=== PATIENT | female | born 1965 | race Caucasian/White ===

== ENCOUNTER 2016-04-29 07:28 | Day surgery (SDC) | payer OTHER ==
--- NOTE | ~2016-04-29 | EGD ---
EGD REPORT [place] [address] [id number] NAME: CHELLE BOOGIE : 63 STATUS : REG [facility]#: [id number] AGE: 50 ADM/REG DATE : 04/29/16 MR#: [id number] REPORT SERV DATE: 04/29/16 DICTATED BY: JESS RANGEL DATE: 04/29/16 REPORT STATUS : Draft TRANSCRIBED BY: [facility] DATE: 04/29/16 Pulmonology Patient Name: Chelle Boogie Procedure Date: 04/29/2016 9:46 AM Date of : 1965 Attending MD: DARIEL RANGEL MD Procedure Date No Time: 04/29/2016 Procedure: EBUS/ERICK BRONCH Indications: Left upper lobe nodule Providers: DARIEL RANGEL MD Referring MD: NICOLAS HARRIS MD Medicines: Lidocaine 2% 20 mL Complications: No immediate complications Procedure: Pre-Anesthesia Assessment: - A History and Physical has been performed. Patient meds and allergies have been reviewed. The risks and benefits of the procedure and the sedation options and risks were discussed with the patient. All questions were answered and informed consent was obtained. Patient identification and proposed procedure were verified prior to the procedure by the physician in the pre-procedure area in the procedure room. Mental Status Examination: alert and oriented. Airway Examination: normal oropharyngeal airway. Respiratory Examination: clear to auscultation. CV Examination: normal and RRR, no murmurs, no S3 or S4. ASA Grade Assessment: III - A patient with severe systemic disease. After reviewing the risks and benefits, the patient was deemed in satisfactory condition to undergo the procedure. The anesthesia plan was to use general anesthesia. Immediately prior to administration of medications, the patient was re-assessed for adequacy to receive sedatives. The heart rate, respiratory rate, oxygen saturations, blood pressure, adequacy of pulmonary ventilation, and response to care were monitored throughout the procedure. The physical status of the patient was re-assessed after the procedure. After obtaining informed consent, the BF [id number] was introduced through the mouth, via the endotracheal tube (the patient was intubated for the procedure) and advanced to the tracheobronchial tree. The procedure was accomplished without difficulty. The patient tolerated the procedure well. Findings: The endotracheal tube is in good position. The visualized portion of the trachea is of normal caliber. The apple is sharp. The tracheobronchial EGD REPORT [address] [address] NAME: CHELLE BOOGIE : 63 STATUS : REG [facility] PAT#: [id number] AGE: 50 ADM/REG DATE : 04/29/16 MR#: [id number] REPORT SERV DATE: 04/29/16 DICTATED BY: JESS RANGEL DATE: 04/29/16 REPORT STATUS : Draft TRANSCRIBED BY: [employer] DATE: 04/29/16 tree was examined to at least the first subsegmental level. Bronchial mucosa and anatomy are normal; there are no endobronchial lesions, and no secretions. EBUS TBNA of lymph node level 11R x 6 passes for cytology EBUS TBNA of lymph node level 7 x 4 passes for cytology EBUS TBNA of lymph node level 11L x 4 passes for cytology Using SuperDimension Edge catheter 180, peripheral probe EBUS 17s, and fluoroscopy, I performed the following biopsies: ZACHARY lung nodule transbronchial needle aspirates x 6 passes for cytology ZACHARY lung nodule transbronchial brush biopsy x 2 pass for cytology ZACHARY lung nodule transbronchial forcep biopsies x 9 passes for histopathology JENNIFER endobronchial brush biopsies were performed for the Percepta Trial Bronchoalveolar lavage was performed in the left upper lobe of the lung and sent for cell count, cytology, bacterial culture, viral smears \\T\\ culture, and fungal and AFB analysis. 180 mL of fluid were instilled. 30 mL were returned. The return was cellular. Impression: Rapid On-Site Evaluation (KEZIA): Preliminary cytology is "Hemorrhagic samples, await final pathology, no tumor seen" (final results are pending). Lesion appeared highly vascular on ultrasoud. Patient enrolled in Percepta clinical trial and Oncocyte trials Recommendation: - Await test results. - Chest X-ray post-procedure. - Follow up in clinic in 2 weeks. Attending Participation: I personally performed the entire procedure. DARIEL RANGEL MD 04/29/2016 11:45 AM This report has been signed electronically. Number of Addenda: 0 Note Initiated On: 04/29/2016 9:46 AM [id number] [id number]
[~2016-04-29 07:28] MED LIST: AMERGE2.5 MG PO; ASAB PO; LOVENOX40 SC; MULTIPLE VIT PO; ZANTAC 150 OR; ZANTAC150 MG PO
[2016-04-29 07:48] LABS: HEMOGLOBIN 15.2 g/dL (12.0-16.0); MEAN CORPUSCULAR HEMOGLOB 29.7 pg (26.0-34.0); MEAN CORPUSCULAR VOLUME 89.8 fL (80-100); MEAN PLATELET VOLUME 10.1 fL (9.2-13.0); PLATELET COUNT 295 10/3/uL (150-400); RBC DISTRIBUTION WIDTH 12.8 % (12.0-16.0); RED CELL COUNT 5.12 10/6/uL (4.0-5.6); WHITE BLOOD CELLS 11.9 10/3/uL (4.5-10.5)
[2016-04-29 07:50] LABS: MANUAL DIFF YES %
[2016-04-29 07:57] LABS: INTERNATIONAL NORMAL RATI 0.9 UNITS (-); PARTIAL THROMBO TIME 25.4 SEC (22.5-37.2); PROTIME (NOT ORD) 12.1 SEC (12.0-14.5)
[2016-04-29 07:58] LABS: BUN (BLOOD UREA NITROGEN) 17 MG/DL (6-23); CALCIUM, SERUM 9.2 MG/DL (8.5-10.4); CHLORIDE, SERUM 106 MMOL/L (96-112); CO2 (CARBON DIOXIDE) 29 MMOL/L (24-34); CREATININE 0.87 MG/DL (0.55-1.02); GFR AFRICAN AMERICAN 89 ML/MIN (>=60); GFR NON AFRICAN AMERICAN 77 ML/MIN (>=60); GLUCOSE, SERUM 94 MG/DL (60-99); POTASSIUM, SERUM 4.5 MMOL/L (3.5-5.3); SODIUM, SERUM 143 MMOL/L (135-148)
[2016-04-29 08:17] LABS: BAND NEUTROPHILS 5 %; EOSINOPHILS 2 %; EOSINOPHILS ABSOLUTE (CALC) 0.24 10/3/uL (0.0-0.53); LYMPHOCYTES 28 %; LYMPHOCYTES ABSOLUTE (CALC) 3.33 10/3/uL (0.67-4.30); MONOCYTES 9 %; MONOCYTES ABSOLUTE (CALC) 1.07 10/3/uL (0.21-1.20); NEUTROPHILS ABSOLUTE (CALC) 7.26 10/3/uL (2.02-8.40); PLATELET ESTIMATE ADQ (ADEQUATE); RBC MORPHOLOGY NORM (NORMAL); SEGMENTED NEUTROPHIL (0) 56 %; TOTAL NUCLEATED CELLS 100
== END 2016-04-29 15:20 | disposition home or self-care (01) ==
LOC: SDC 07:28
PROVIDERS: Anesthesiology; Internal Medicine
PROC: 07B74ZX Excision of Thorax Lymphatic, Percutaneous Endoscopic Approach, Diagnostic (ICD-10-PCS; principal; 2016-04-29 09:30)
DX: R91.1 Solitary pulmonary nodule (principal); I10 Essential (primary) hypertension; E66.9 Obesity, unspecified; Z68.33 Body mass index [BMI] 33.0-33.9, adult; Z88.0 Allergy status to penicillin; Z79.82 Long term (current) use of aspirin; Z79.02 Long term (current) use of antithrombotics/antiplatelets; Z79.899 Other long term (current) drug therapy
CPT/HCPCS: 71010; 80048; 85025; 85610; 85730; 88112; 88172; 88173; 88305; 88313; 88333; 88334; A9270-GY; C1725; C1769; J2250; J2405; J2710; J3010